=== PATIENT | female | born 1995 | race Caucasian/White ===

== ENCOUNTER 2016-07-25 21:10 | Emergency (ER) | payer BC, OTHER ==
[2016-07-25] MEDS ORDERED: ONDANSETRON 4 MG/2ML 2 ML VIAL ONE (22:06)
[2016-07-25] MEDS ORDERED: SODIUM CHLORIDE 0.9% 2,000 ML ONE (22:43)
[2016-07-25 23:02] LABS: URINE BILIRUBIN NEGATIVE (NEGATIVE); URINE BLOOD NEGATIVE (NEGATIVE); URINE GLUCOSE (UA) NEGATIVE (NEGATIVE); URINE LEUKOCYTE ESTERASE TRACE (NEGATIVE); URINE NITRITE NEGATIVE (NEGATIVE); URINE PROTEIN TRACE (NEGATIVE); URINE UROBILINOGEN NORMAL (0-1 mg/dl)
[2016-07-25 23:07] LABS: HCG,QUALITATIVE URINE NEGATIVE
[2016-07-25 23:09] LABS: URINE APPEARANCE SL CLOUDY; URINE BACTERIA 1+; URINE COLOR DARK YELLOW; URINE MUCUS 1+; URINE RBC 0 /hpf; URINE WBC 0-2 /hpf
[2016-07-25 23:11] LABS: ABSOLUTE NEUTROPHIL COUNT 15.3 K/mm3 (1.8-7.7); BASO # 0.1 K/mm3 (0.0-0.2); BASO % 0.3 % (0.2-1.0); EOS # 0.1 (0.0-0.5); EOS % 0.7 % (0.9-2.9); HEMATOCRIT 47.6 % (37.0-47.0); HEMOGLOBIN 16.1 gm/l (12.0-16.0); IMM NEUT # 0.1 K/mm3 (0-0.2); IMM NEUT% 0.4 % (0-1); LYMPH # 1.4 (1.0-4.8); LYMPH % 7.9 % (15-45); MEAN CELL VOLUME 90.2 fl (81.0-99.0); MEAN CORPUSCULAR HEMOGLOBIN 30.5 pg (27.0-31.0); MEAN CORPUSCULAR HGB CONC 33.8 g/dl (33.0-37.0); MEAN PLATELET VOLUME 10.7 fl (7.4-10.4); MONO # 0.9 (0.0-0.8); NEUT % 85.7 % (43-75); PLATELET COUNT 414 K/mm3 (130-400); RED CELL DISTRIBUTION WIDTH 11.9 % (11.5-14.5)
[2016-07-25 23:18] LABS: ALB/GLOB RATIO 1.2 (>1.0); ALBUMIN 4.1 gm/dL (3.5-5.7); CALCIUM 9.4 mg/dL (8.6-10.3)
== END 2016-07-26 01:09 | disposition home or self-care (01) ==
LOC: ED 21:10
DX: R10.9 Unspecified abdominal pain (principal); R11.10 Vomiting, unspecified; R19.7 Diarrhea, unspecified; Z79.3 Long term (current) use of hormonal contraceptives
CPT/HCPCS: 81025; 85025; 80053; 81001; 99284 ×2; 96374; 96361; J2405; J7030